=== PATIENT | female | born 1955 | race Hispanic/Latino ===

== ENCOUNTER 2020-02-25 00:22 | Emergency (ER) | payer SELFPAY ==
[~2020-02-25] VITALS: Ht 160 cm; Wt 72.6 kg
[2020-02-25] MEDS ORDERED: ONDANSETRON HCL INJ 2MG/ML 2ML 2 MG/ML VIAL IV STA (01:56)
--- NOTE | 2020-02-25 02:15 | Emergency Department Note ---
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 Historian: Patient Arrival Mode: Car Crystal Inspector Required: Yes Onset (how long ago): day(s) (15) Location: all over, Quality: nause, dysuria, cough, body aches, fever Radiation: Reports non-radiation Severity: moderate Onset quality: gradual Duration (how long): day(s) (15) Timing of current episode: constant Progression: worsening Chronicity: new Context: Reports recent illness (positive for covid 19) Relieving factors: none Exacerbating factors: none Associated symptoms: Reports cough, Reports fever/chills, Reports na usea/vomiting (no vomiting), Reports shortness of breath Past Medical/Family History Physician Review I have reviewed the patient's past medical and family history. Any updates have been documented here. Past Medical History Recent Fever: Yes Clinical Suspicion of Infectio: No New/Unexplained Change in Ment: No Past Medical History: Hypertension, Diabetes Past Surgical History: Cholecysctectomy Social History Smoking Cessation: Never Smoker Alcohol Use: None Any Illegal Drug Use: No Physically hurt or threatened: No Family History Family history of heart diseas: No Other family history htn,dm Review of Systems Review of Systems Constitutional: Reports as per HPI EENTM: Reports no symptoms Cardiovascular: Reports no symptoms Respiratory: Reports as per HPI Gastrointestinal: Reports no symptoms Genitourinary: Reports as per HPI Musculoskeletal: Reports no symptoms Integumentary: Reports no symptoms Neurological: Reports no symptoms Psychological: Reports no symptoms Endocrine: Reports no symptoms Hematological/Lymphatic: Reports no symptoms Physical Exam Related Data Allergies: Coded Allergies: No Known Allergies (Unverified , 02/25/20) Triage Vital Signs Vital Signs Date Time Temp Pulse Resp B/P (MAP) Pulse Ox O2 Delivery O2 Flow Rate FiO2 02/25/20 01:56 99.4 78 20 155/73 97 Room Air Physical Exam CONSTITUTIONAL Constitutional: Present well-developed, Present well-nourished; Absent distressed HENT HENT: Present normocephalic, Present atraumatic, Present oropharynx clear/m oist, Present nose normal HENT L/R: Present left ext ear normal, Present right ext ear normal EYES Eyes: Reports PERRL, Reports conjunctivae normal NECK Neck: Present ROM normal PULMONARY Pulmonary: Present effort normal, Present other (mild decrease in bilateral lower lobes) CARDIOVASCULAR Cardiovascular: Present regular rhythm, Present heart sounds normal, Present capillary refill normal, Present normal rate GASTROINTESTINAL Abdominal: Present soft, Present nontender, Present bowel sounds normal GENITOURINARY Genitourinary: Present exam deferred SKIN Skin: Present warm, Present dry MUSCULOSKELETAL Musculoskeletal: Present ROM normal NEUROLOGICAL Neurological: Present alert, Present oriented x 3, Present no gross motor or sensory deficits PSYCHOLOGICAL Psychological: Present mood/affect normal, Present judgement normal Results Laboratory Laboratory Laboratory Tests Test 02/25/20 02:05 White Blood Count 7.02 x10e3/uL (4.8-10.8) Red Blood Count 4.07 x10e6/uL (3.6-5.1) Hemoglobin 11.8 g/dL (12.0-16.0) Hematocrit 34.2 % (34.2-44.1) Mean Corpuscular Volume 84.0 fL (81-99) Mean Corpuscular Hemoglobin 29.0 pg (28-32) Mean Corpuscular Hemoglobin Concent 34.5 g/dL (31-35) Red Cell Distribution Width 12.8 % (11.7-14.4) Platelet Count 317 x10e3/uL (140-360) Neutrophils (%) (Auto) 71.5 % (38.7-80.0) Lymphocytes (%) (Auto) 19.8 % (18.0-39.1) Monocytes (%) (Auto) 7.3 % (4.4-11.3) Eosinophils (%) (Auto) 0.1 % (0.0-6.0) Basophils (%) (Auto) 0.3 % (0.0-1.0) Neutrophils # (Auto) 5.0 (2.1-6.9) Lymphocytes # (Auto) 1.4 (1.0-3.2) Monocytes # (Auto) 0.5 (0.2-0.8) Eosinophils # (Auto) 0.0 (0.0-0.4) Basophils # (Auto) 0.0 (0.0-0.1) Absolute Immature Granulocyte (auto 0.07 x10e3/uL (0-0.1) Urine Color Yellow (YELLOW) Urine Clarity Cloudy (CLEAR) Urine pH 7 (5 - 7) Urine Specific [place] 1.025 (1.010-1.025) Urine Protein Negative (NEGATIVE) Urine Glucose (UA) 2+ (NEGATIVE) Urine Ketones Negative (NEGATIVE) Urine Blood 1+ (NEGATIVE) Urine Nitrite Negative (NEGATIVE) Urine Bilirubin Small (NEGATIVE) Urine Urobilinogen 1 mg/dL (0.2 - 1) Urine Leukocyte Esterase Negative (NEGATIVE) Urine RBC 11-20 /HPF (0-5) Urine WBC 21-50 /HPF (0-5) Urine Epithelial Cells Few /LPF (NONE) Urine Transitional Epithelial Cells Few (NONE) Urine Bacteria Many /HPF (NONE) Urine Mucus Few (RARE) Sodium Level 135 mmol/L (136-145) Potassium Level 4.4 mmol/L (3.5-5.1) Chloride Level 101 mmol/L (98-107) Carbon Dioxide Level 25 mmol/L (22-29) Anion Gap 13.4 mmol/L (8-16) Blood Urea Nitrogen 10 mg/dL (7-26) Creatinine 0.75 mg/dL (0.57-1.11) Estimat Glomerular Filtration Rate > 60 ML/MIN (60-) BUN/Creatinine Ratio 13 (6-25) Glucose Level 197 mg/dL (74-118) Calcium Level 8.9 mg/dL (8.4-10.2) Lab results reviewed: Yes Assessment & Plan Medical Decision Making [facility] pt with covid 19 with c/o nause, dysuria cbc,bmp, ua ordered to eval for uti, dehydration pt discharged with following omnicef 300 mg po bid for 10 days zofran odt 4 mg 1 sl q 6 hours prn nausea Assessment & Plan Final Impression: (1) COVID-19 (2) UTI (urinary tract infection) Depart Disposition: HOME, SELF-CARE Last Vital Signs Date Time Temp Pulse Resp B/P (MAP) Pulse Ox O2 Delivery O2 Flow Rate FiO2 02/25/20 01:56 99.4 78 20 155/73 97 Room Air Medications in the ED Ondansetron HCl 4 mg NOW STAT IV ; Start 02/25/20 at 01:56; Stop 02/25/20 at 02:05; Status DC JULIA PATHAK MD Feb 25, 2020 02:15
[2020-02-25 02:31] LABS: BASOPHILS % 0.3 % (0.0-1.0); EOSINOPHILS % 0.1 % (0.0-6.0); HEMATOCRIT 34.2 % (34.2-44.1); HEMOGLOBIN 11.8 g/dL (12.0-16.0); LYMPHOCYTES # (AUTO) 1.4 (1.0-3.2); LYMPHOCYTES % 19.8 % (18.0-39.1); MEAN CORPUSCULAR HGB CONC 34.5 g/dL (31-35); MONOCYTES # (AUTO) 0.5 (0.2-0.8); MONOCYTES % 7.3 % (4.4-11.3); NEUTROPHILS % 71.5 % (38.7-80.0); PLATELET COUNT 317 x10e3/uL (140-360); RED BLOOD COUNT 4.07 x10e6/uL (3.6-5.1); RED CELL DISTRIBUTION WIDTH 12.8 % (11.7-14.4)
[2020-02-25 02:45] LABS: CLARITY,URINE CLOUDY (CLEAR); COLOR,URINE YELLOW (YELLOW); LEUKOCYTE ESTERASE ,URINE NEGATIVE (NEGATIVE); NITRITE,URINE NEGATIVE (NEGATIVE); PROTEIN,URINE DIPSTICK NEGATIVE (NEGATIVE)
[2020-02-25 02:46] LABS: BACTERIA,URINE MANY /HPF; BILIRUBIN,URINE SMALL (NEGATIVE); EPITHELIAL CELLS,URINE FEW /LPF; KETONES,URINE NEGATIVE (NEGATIVE); MUCUS,URINE FEW (RARE); TRANSITIONAL EPI CELLS,URINE FEW; URINE UROBILINOGEN 1 mg/dL (0.2 - 1); WBC,URINE (MAN) 21-50 /HPF (0-5)
[2020-02-25 02:49] LABS: ANION GAP 13.4 mmol/L (8-16); BLOOD UREA NITROGEN 10 mg/dL (7-26); BUN/CREATININE RATIO 13 (6-25); CALCIUM 8.9 mg/dL (8.4-10.2); CARBON DIOXIDE 25 mmol/L (22-29); CHLORIDE 101 mmol/L (98-107); CREATININE, SERUM 0.75 mg/dL (0.57-1.11); EST GLOMERULAR FILTRATION RATE > 60 ML/MIN (60-); GLUCOSE 197 mg/dL (74-118); POTASSIUM 4.4 mmol/L (3.5-5.1); SODIUM 135 mmol/L (136-145)
== END 2020-02-25 03:50 | disposition home or self-care (01) ==
LOC: ER 02:05
DX: U07.1 COVID-19 (principal); R50.9 Fever, unspecified; N39.0 Urinary tract infection, site not specified; R30.0 Dysuria; R05 Cough; R51 Headache; R11.0 Nausea; I10 Essential (primary) hypertension; E11.9 Type 2 diabetes mellitus without complications
CPT/HCPCS: 36415; 80048; 81001; 85025; 99284; J2405